=== PATIENT | female | born 1980 | race Hispanic/Latino ===

== ENCOUNTER 2019-05-23 21:06 | Emergency (ER) | payer MEDICARE, MEDICAID, SELFPAY ==
[2019-05-23 21:11] VITALS: BP 125/49; PULSE 137; RESP 24; TEMP 36.6; O2SAT 100
--- NOTE | 2019-05-23 21:12 | ED.GENADULT ---
HPI - General Adult General Chief complaint: Unspecified Stated complaint: took 4 pots mints, feeling weird Time Seen by Provider: 05/23/19 21:10 Source: family Mode of arrival: ambulatory History of Present Illness HPI narrative: A 39 y/o female presents to the ED, with c/o accidental overdose on marijuana. Spouse at bedside states pt told him she used recreational marijuana in the form of mints x 5 , but is unsure of the dosage. Spouse notes that pt has a hx of Lupus, Endometriosis, and arthritis that causes her to have chronic pain, so she was trying recreational marijuana for pain relief. Spouse reports that pt used marijuana in the form of a pill a few days ago and it made her very paranoid. He states when he returned home from dinner tonight he noticed the pt's heart rate was 150 bpm on her smart watch and she was paranoid and slow to respond. Pt's spouse states he gave the pt Aspirin x 1 prior to arrival. He denies pt having any recent illness. A complete HPI is limited d/t pt's clinical condition. complaint: accidental overdose Onset (ago): hour(s) Associated symptoms: other (paranoia, AMS) Treatments prior to arrival: aspirin Related Data Allergies Allergy/AdvReac Type Severity Reaction Status Date / Time Sulfa (Sulfonamide Allergy Mild hives, Verified 05/23/19 21:20 Antibiotics) itching Review of Systems Review of Systems: Narrative: A complete ROS is limited d/t pt's clinical condition. Constitutional: Constitutional: Reports other (AMS) Psychiatric: Psychiatric: Reports paranoia PMFSH Past Medical History Medical History (Updated 05/23/19 @ 23:52 by Nyla Mcnally MD) Arthritis Bowel obstruction Endometriosis Lupus Surgical History Surgical History (Updated 05/23/19 @ 22:01 by Hi eBTeravac) History of cholecystectomy History of hysterectomy History of tonsillectomy Social History Social History (Updated 05/23/19 @ 22:01 by Hi BeTeravac) Smoking status: Former smoker Exam Const: General: cooperative, no acute distress and alert Nutritional Appearance: well nourished Orientation/consciousness: patient oriented x3 Limitations: no limitations HENMT: Mouth: Yes lip normal and Yes dry mucous membranes Eyes: Pupils: Dilated pupils (reactive) bilaterally Resp: Effort & Inspection: normal respiratory effort Auscultation: clear to auscultation bilaterally Cardio: Rate: tachycardic Rhythm: regular rhythm Heart sounds: no murmurs GI: GI Palp: Yes Soft to palpation and No Tenderness to palpation present (GI) Auscultation: normal bowel sounds Skin: General skin exam: normal color Neuro: General: patient oriented x3 Cognition (Neuro): normal cognition Speech: normal speech Extrem: General: normal to inspection, full ROM and no clubbing, cyanosis or edema Psych: Mental Status: mental status grossly normal Affect: normal affect Attitude: cooperative Course Course Emergency Course: Patient heart rate normalized after Ativan and IV fluids. Patient calm and relaxed. Patient able to ambulate in ED with steady gait without difficulty. Patient drinking fluids without difficulty. Counseled on importance of avoiding marijuana unless under the guidance of a medical provider for medical marijuana given her significant symptomatology with attempts at self-medication. Vital Signs Vital signs: Vital Signs Temperature 97.8 F 05/23/19 21:11 Pulse Rate 137 H 05/23/19 21:11 Respiratory Rate 24 H 05/23/19 21:11 Blood Pressure 125/49 L 05/23/19 21:11 Pulse Oximetry 100 05/23/19 21:11 Temperature 97.8 F 05/23/19 21:11 Pulse Rate 97 05/23/19 22:36 Respiratory Rate 21 H 05/23/19 22:36 Blood Pressure 94/57 L 05/23/19 22:36 Pulse Oximetry 99 05/23/19 22:36 Medical Decision Making Vital Signs Vital Signs: Vital Signs Temperature 97.8 F 05/23/19 21:11 Pulse Rate 137 H 05/23/19 21:11 Respiratory Rate 24 H 05/23/19 21:11 Blood
[2019-05-23 21:17] VITALS: PULSE 131
--- NOTE | 2019-05-23 21:21 | ECG_ITS ---
Measurements Intervals [place] Rate: 128 P: 38 UT: 148 QRS: 29 QRSD: 76 T: 11 QT: 334 QTc: 488 Interpretive Statements SINUS TACHYCARDIA NONSPECIFIC T-WAVE ABNORMALITY- INFERIOR LEADS BASELINE ARTIFACT- I, II, III, AVR, AVL, AVF, V3-V4 ABNORMAL ECG Electronically Signed On 05-24-2019 7:15:09 SAP BASIS by Jose Hudson D.O.
[2019-05-23] MEDS: LORAZEPAM INJ 2 MG/ML VIAL 1 MG IV PUSH (21:33)
[2019-05-23] MEDS: LACTATED RINGERS 1,000 ML 999 ML IV CONT (21:36)
[2019-05-23 21:39] LABS: Basophils Absolute Auto 0.1 K/mm3 (0.0-0.1); Basophils Percent Auto 0.9 % (0.2-1.2); Eosinophils Absolute Auto 0.1 K/mm3 (0-0.3); Eosinophils Percent Auto 1.4 % (0-4.4); Hematocrit 37.2 % (37.0-47.0); Hemoglobin 12.2 g/dL (12.0-15.0); Immature Granulocyte Absolute 0.02 K/mm3 (0.00-0.031); Immature Granulocyte Percent A 0.4 % (0-0.5); Lymphocytes Absolute Auto 2.45 K/mm3 (0.9-3.2); Lymphocytes Percent Auto 42.9 % (18.3-44.2); Mean Corpuscular HGB Conc 32.8 g/dl (32-36); Mean Corpuscular Hemoglobin 29.9 pg (26-34); Mean Corpuscular Volume 91.2 fl (80-100); Mean Platelet Volume 10.4 fl (7.4-10.4); Monocytes Absolute Auto 0.2 K/mm3 (0.1-0.6); Monocytes Percent Auto 3.9 % (2.6-8.5); Neutrophils Absolute Auto 2.9 K/mm3 (1.3-6.7); Neutrophils Percent Auto 50.5 % (45.5-73.1); Platelet Count Result 265 k/mm3 (150-375); Red Blood Count 4.08 M/mm3 (4.2-5.4); Red Cell Distribution Width 12.7 % (11.5-14.5); White Blood Count 5.7 K/mm3 (4.5-10.0)
[2019-05-23 21:51] LABS: Alanine Aminotransferase 56 U/L (4-35); Albumin Level 3.9 g/dL (3.5-5.1); Alkaline Phosphatase 114 U/L (38-126); Aspartate Amino Transferase 32 U/L (14-36); Bilirubin,Total 0.2 mg/dL (0.2-1.3); Blood Urea Nitrogen 12 mg/dL (7-17); Calcium 8.5 mg/dL (8.4-10.2); Carbon Dioxide 25 mmol/L (22-30); Chloride 103 mmol/L (98-107); Estimated Glomerular Filt Rate > 60; Glucose 286 mg/dL (65-105); Potassium 3.8 mmol/L (3.4-5.0); Sodium 139 mmol/L (137-145)
[2019-05-23 21:52] LABS: Ethanol < 10 mg/dL (<10)
[2019-05-23 21:52] LABS: Add Urine Microscopic? YES; Appearance Urine Clear (Clear); Bacteria Urine Trace /hpf; Bilirubin Urine Negative (Negative); Blood Urine Negative (Negative); Color Urine Yellow (Yellow); Glucose Urine UA 3+ mg/dL (Negative); Ketones Urine Negative (Negative); Leukocyte Esterase Ur Negative LEU/UL (Negative); Mucus Urine Rare /lpf; Nitrate Urine Negative (Negative); Protein Urine Negative (Negative); Specific Grav Ur 1.021 (1.001-1.035); Squamous Epithelial Cell Urine Rare /hpf (Few); Urobilinogen Urine Negative mg/dL (<2.0); WBC Urine 0-3 /hpf
[2019-05-23 22:04] LABS: Amphetamine Screen Urine Negative (Negative); Barbiturate Screen Urine Negative (Negative); Benzodiazepines Screen Urine Negative (Negative); Cannabinoid Screen Urine Positive (Negative); Cocaine Screen Urine Negative (Negative); Methadone Screen Urine Negative (Negative); Opiate Screen Urine Negative (Negative); Phencyclidine Screen Urine Negative (Negative)
[2019-05-23 22:36] VITALS: BP 94/57; PULSE 97; RESP 21; O2SAT 99
[2019-05-24] VITALS: BP 96/59; PULSE 81; RESP 19; TEMP 36.4; O2SAT 99
== END 2019-05-24 00:03 | disposition home or self-care (01) ==
PROVIDERS: Emergency Provider Emergency Medicine; PCP Physician Assistant
DX: F12.921 Cannabis use, unspecified with intoxication delirium (principal); N80.9 Endometriosis, unspecified; M19.90 Unspecified osteoarthritis, unspecified site; Z87.891 Personal history of nicotine dependence; R00.0 Tachycardia, unspecified; R94.31 Abnormal electrocardiogram [ECG] [EKG]; T40.7X1A Poisoning by cannabis (derivatives), accidental (unintentional), initial encounter
CPT/HCPCS: 36415; 51701; 80053; 80307; 81001; 81025; 85025; 93005; 96361; 96374; 99284; J2060; J7120

== ENCOUNTER 2019-05-27 08:05 | Outpatient (CLI) | payer MEDICARE, MEDICAID, SELFPAY ==
[2019-05-27 08:43] LABS: Alanine Aminotransferase 40 U/L (4-35); Albumin Level 4.4 g/dL (3.5-5.1); Alkaline Phosphatase 112 U/L (38-126); Aspartate Amino Transferase 26 U/L (14-36); Bilirubin,Total 0.4 mg/dL (0.2-1.3); Blood Urea Nitrogen 8 mg/dL (7-17); Calcium 9.1 mg/dL (8.4-10.2); Carbon Dioxide 25 mmol/L (22-30); Chloride 102 mmol/L (98-107); Estimated Glomerular Filt Rate > 60; Glucose 104 mg/dL (65-105); Potassium 4.3 mmol/L (3.4-5.0); Sodium 141 mmol/L (137-145)
[2019-05-27 09:19] LABS: Basophils Absolute Auto 0.1 K/mm3 (0.0-0.1); Basophils Percent Auto 0.9 % (0.2-1.2); Eosinophils Absolute Auto 0.1 K/mm3 (0-0.3); Eosinophils Percent Auto 1.3 % (0-4.4); Hematocrit 40.8 % (37.0-47.0); Hemoglobin 13.1 g/dL (12.0-15.0); Immature Granulocyte Absolute 0.02 K/mm3 (0.00-0.031); Immature Granulocyte Percent A 0.3 % (0-0.5); Lymphocytes Absolute Auto 1.98 K/mm3 (0.9-3.2); Mean Corpuscular HGB Conc 32.1 g/dl (32-36); Mean Corpuscular Hemoglobin 29.6 pg (26-34); Mean Corpuscular Volume 92.1 fl (80-100); Mean Platelet Volume 10.6 fl (7.4-10.4); Monocytes Absolute Auto 0.3 K/mm3 (0.1-0.6); Monocytes Percent Auto 4.1 % (2.6-8.5); Neutrophils Absolute Auto 4.4 K/mm3 (1.3-6.7); Neutrophils Percent Auto 64.4 % (45.5-73.1); Platelet Count Result 290 k/mm3 (150-375); Red Blood Count 4.43 M/mm3 (4.2-5.4); Red Cell Distribution Width 12.8 % (11.5-14.5); White Blood Count 6.8 K/mm3 (4.5-10.0)
[2019-05-27 09:33] LABS: Vitamin B12 > 1000.0 pg/mL (239-931)
== END 2019-05-27 08:06 | disposition home or self-care (01) ==
PROVIDERS: PCP Physician Assistant; Visit Provider Physician Assistant
DX: R53.83 Other fatigue (principal); Z98.890 Other specified postprocedural states
CPT/HCPCS: 36415; 80053; 82607; 84443; 85025

== ENCOUNTER → 2020-05-04 16:07 | Outpatient (CLI) | payer MEDICARE, MEDICAID, SELFPAY ==
--- NOTE | ~2020-05-04 | XR_ITS ---
XR abdomen/kub 1V 05/04/2020 16:25 INDICATION: Flank pain and TECHNIQUE: KUB COMPARISON: 10/15/2014 FINDINGS: Bowel gas pattern is normal. There is no evidence of free air, mass, organomegaly, ascites or obstruction. No abnormal calculi are seen. The bones appear intact. IMPRESSION: 1: No acute abdominal abnormality identified. Reviewed, dictated and finalized at location A. NIC MANAGER
== END ==
PROVIDERS: PCP Physician Assistant; Visit Provider Physician Assistant
DX: R10.9 Unspecified abdominal pain (principal)
CPT/HCPCS: 74018

== ENCOUNTER 2020-05-20 10:27 | Emergency (ER) | payer MEDICARE, MEDICAID, SELFPAY ==
[2020-05-20 10:58] VITALS: BP 110/75; PULSE 97; RESP 20; TEMP 36.8; O2SAT 99
--- NOTE | 2020-05-20 11:18 | ED.FEMALEGU ---
HPI - Female Genitourinary General Chief complaint: Urogenital-Female Stated complaint: UTI/teeth pain/cold symptoms Time Seen by Provider: 05/20/20 11:09 Source: patient and RN notes reviewed Mode of arrival: ambulatory Limitations: no limitations History of Present Illness HPI Narrative: Patient presents today complaining of a 4-day history of dysuria, frequency, and possible urinary retention. Denies hematuria. History of interstitial cystitis for which she is in treatment for by her OB at [facility] and takes Elimiron. She is unsure if her current symptoms are UTI or an exacerbation of her interstitial cystitis. She is also complaining of pain to several of her teeth. States she knows she has several cavities and is on the waiting list at the dental school, but has been unable to find a dentist otherwise. States she has been eating soft foods for the last couple of months as it is painful to chew. Denies fever, difficulty swallowing, shortness of breath. Rates her tooth pain 5/10 and has been taking Tylenol. MD elicited complaint: dysuria Related Data Home Medications Medication Instructions Recorded Confirmed albuterol sulfate 90 mcg INHALATION PRN PRN 05/20/20 05/20/20 clonazepam 0.5 mg PO DAILY 05/20/20 05/20/20 duloxetine 60 mg PO DAILY 05/20/20 05/20/20 gabapentin 100 mg PO DAILY 05/20/20 05/20/20 lamotrigine 100 mg PO DAILY 05/20/20 05/20/20 pentosan polysulfate sodium 100 mg PO DAILY 05/20/20 05/20/20 [Elmiron] trazodone 50 mg PO HS 05/20/20 05/20/20 Allergies Allergy/AdvReac Type Severity Reaction Status Date / Time Sulfa (Sulfonamide Allergy Mild hives, Verified 05/20/20 10:44 Antibiotics) itching NSAIDS (Non-Steroidal AdvReac Intermediate Gastrointestinal Verified 05/20/20 10:44 Anti-Inflamma Upset Review of Systems Review of Systems: Narrative: CONSTITUTIONAL: Denies body aches, fever, chills, or sweats. EYES: Denies visual changes, redness, or discharge. ENT: Denies rhinorrhea, congestion, sore throat, or otalgia.+ tooth pain CARDIOVASCULAR: Denies chest pain, palpitations, or edema. RESPIRATORY: Denies cough or dyspnea. GASTROINTESTINAL: Denies abdominal pain, nausea, vomiting, or diarrhea. GENITOURINARY: +dysuria, frequency SKIN: Denies rash, itching, or wounds. MUSCULOSKELETAL: Denies back pain, joint pain, or myalgia. NEUROLOGIC: Denies headache, numbness, tingling, or weakness. PSYCH: Denies depression or anxiety. [facility] Past Medical History Medical History (Updated 05/20/20 @ 12:46 by Brissa Belle, [facility], ) Arthritis Bowel obstruction Endometriosis Interstitial cystitis Lupus Surgical History Surgical History (Updated 05/23/19 @ 22:01 by Hi Be Doist) History of cholecystectomy History of hysterectomy History of tonsillectomy Social History Social History (Updated 05/23/19 @ 22:01 by Hi Be Doist) Smoking status: Former smoker Gender identity (if verbalized by the patient): Female Comments At time of signature, I have reviewed and agree with nursing past medical, surgical, social and family history unless otherwise noted. Please see nursing chart for further information. There is no relevant family history pertinent to the presenting complaint Exam Narrative: Exam Narrative: GENERAL: Well-appearing, well-nourished, and in no acute distress. HEAD: Normocephalic, atraumatic. EYES: EOMI. No redness or drainage. Conjunctivae normal. ENT: Mucous membranes pink and moist. Nares clear. No rhinorrhea. No obvious periapical abscesses or swollen gums. No obvious dental caries. TMs normal bilaterally. Throat normal. Uvula midline. NECK: Normal AROM. Supple. No lymphadenopathy. CHEST: No respiratory distress. Clear to auscultation. HEART: Regular rate and rhythm. No murmur appreciated. Normal peripheral pulses. ABDOMEN: Soft, nondistended, normal active bowel sounds. +Suprapubic area is slightly tender to palpation. MUSCULOSKELETAL: N
== END 2020-05-20 11:25 | disposition home or self-care (01) ==
PROVIDERS: Emergency Provider Nurse Practitioner; PCP Physician Assistant
DX: N30.01 Acute cystitis with hematuria (principal); K08.89 Other specified disorders of teeth and supporting structures; Z87.891 Personal history of nicotine dependence; M19.90 Unspecified osteoarthritis, unspecified site; N80.9 Endometriosis, unspecified; M32.9 Systemic lupus erythematosus, unspecified
CPT/HCPCS: 81003; 87086; 87088; 99213; G0463

== ENCOUNTER → 2020-06-17 13:53 | Outpatient (CLI) | payer MEDICARE, MEDICAID, SELFPAY ==
--- NOTE | ~2020-06-17 | MR_ITS ---
EXAMINATION: MR cervical spine wo con EXAM DATE: 06/17/2020 14:32 INDICATION: Left-sided neck pain, left shoulder pain. Cervicalgia. TECHNIQUE: Multi-sequential, multiplanar MR images of the cervical spine were obtained without contra st. Axial T2, axial T2 MERGE sequence. Sagittal T1, T2, T2 fat saturation images also obtained. Th ere is no prior study for comparison. FINDINGS: Moderate-sized dilated right-sided nerve root sleeve at T2-3, small dilated nerve root sle eves at some other levels bilaterally. This is not a clinically significant finding. The spinal cord signal intensity and intrinsic morphology is normal. Cervicomedullary junction is normal in appearanc e. There are no suspicious marrow signal abnormalities. Mild to moderate loss of the C5-6 disc height . The vertebral body and disc heights are otherwise well maintained. The vertebral bodies are aligned in the AP dimension. Paraspinal soft tissue is unremarkable. Level by level evaluation: C2-C3: Disc does not extend beyond the endplate margin. Uncovertebral joint arthropathy: None. Facet joint arthropathy: Mild bilateral. Neural foraminal stenosis: No stenosis. Central canal stenosis: No stenosis. C3-C4: Disc does not extend beyond the endplate margin. Uncovertebral joint arthropathy: None. Facet joint arthropathy: Mild bilateral. Neural foraminal stenosis: No stenosis. Central canal stenosis: No stenosis. C4-C5: Disc does not extend beyond the endplate margin. Uncovertebral joint arthropathy: None. Facet joint arthropathy: Mild bilateral. Neural foraminal stenosis: No stenosis. Central canal stenosis: No stenosis. C5-C6: There is a mild diffuse disc bulge. Uncovertebral joint arthropathy: Mild to moderate left, mild right. Facet joint arthropathy: Mild bilateral. Neural foraminal stenosis: Mild to moderate left, mild right. Central canal stenosis: Mild. C6-C7: There is a minimal diffuse disc bulge. Uncovertebral joint arthropathy: Mild left. Facet joint arthropathy: Minimal bilateral. Neural foraminal stenosis: No stenosis. Central canal stenosis: No stenosis. C7-T1: Disc does not extend beyond the endplate margin. Uncovertebral joint arthropathy: None. Facet joint arthropathy: Mild bilateral. Neural foraminal stenosis: No stenosis. Central canal stenosis: No stenosis. IMPRESSION: 1. C5-6 mild to moderate left neural foraminal stenosis, the most narrowed level. 2. Less spondylosis other levels. Reviewed, dictated and finalized at location A. IMPRESSION: 1. C5-6 mild to moderate left neural foraminal stenosis, the most narrowed lev el. 2. Less spondylosis other levels.
== END ==
DX: M54.2 Cervicalgia (principal)
CPT/HCPCS: 72141

== ENCOUNTER 2020-09-08 08:49 | Outpatient (CLI) | payer MEDICARE, MEDICAID, SELFPAY ==
[2020-09-08 09:34] LABS: Basophils Absolute Auto 0.1 K/mm3 (0.0-0.1); Basophils Percent Auto 0.9 % (0.2-1.2); Eosinophils Percent Auto 0.2 % (0-4.4); Hematocrit 42.5 % (37.0-47.0); Hemoglobin 13.6 g/dL (12.0-15.0); Immature Granulocyte Percent A 1.2 % (0-0.5); Lymphocytes Absolute Auto 2.47 K/mm3 (0.9-3.2); Lymphocytes Percent Auto 30.5 % (18.3-44.2); Mean Corpuscular Hemoglobin 29.9 pg (26-34); Mean Corpuscular Volume 93.4 fl (80-100); Mean Platelet Volume 9.6 fl (7.4-10.4); Monocytes Absolute Auto 0.5 K/mm3 (0.1-0.6); Monocytes Percent Auto 6.5 % (2.6-8.5); Neutrophils Absolute Auto 4.9 K/mm3 (1.3-6.7); Neutrophils Percent Auto 60.7 % (45.5-73.1); Platelet Count Result 291 k/mm3 (150-375); Red Blood Count 4.55 M/mm3 (4.2-5.4); Red Cell Distribution Width 12.7 % (11.5-14.5); White Blood Count 8.1 K/mm3 (4.5-10.0)
[2020-09-08 09:51] LABS: Creatinine Urine 167.1 mg/dL
[2020-09-08 09:59] LABS: Alanine Aminotransferase 27 U/L (4-35); Albumin Level 4.3 g/dL (3.5-5.1); Alkaline Phosphatase 90 U/L (38-126); Anion Gap 10 mmol/L (8-16); Aspartate Amino Transferase 28 U/L (14-36); Bilirubin,Total 0.3 mg/dL (0.2-1.3); Blood Urea Nitrogen 8 mg/dL (7-17); Calcium 9.8 mg/dL (8.4-10.2); Carbon Dioxide 28 mmol/L (22-30); Chloride 104 mmol/L (98-107); Estimated Glomerular Filt Rate > 60; Glucose 100 mg/dL (65-105); Magnesium 2.2 mg/dL (1.6-2.3); Potassium 4.5 mmol/L (3.4-5.0); Sodium 142 mmol/L (137-145)
[2020-09-08 10:22] LABS: MALB Creatinine Ratio < 3.6 mg/g (0-30); Microalbumin Urine Random < 6.0 mg/L (0-16.7)
[2020-09-08 10:29] LABS: Thyroid Stimulating Hormone 0.037 uIU/mL (0.465-4.680)
[2020-09-08 10:32] LABS: Free T4 Free Thyroxine 0.89 ng/mL (0.78-2.19); Vitamin D 25 Hydroxy 70.9 ng/mL
[2020-09-08 10:48] LABS: Vitamin B12 > 1000.0 pg/mL (239-931)
== END 2020-09-08 08:50 | disposition home or self-care (01) ==
PROVIDERS: PCP Physician Assistant; Visit Provider Physician Assistant
DX: R53.83 Other fatigue (principal); E55.9 Vitamin D deficiency, unspecified; K13.0 Diseases of lips
CPT/HCPCS: 36415; 80053; 82043; 82306; 82607; 83735; 84439; 84443; 85025

== ENCOUNTER → 2020-09-15 11:14 | Outpatient (CLI) | payer MEDICARE, MEDICAID, SELFPAY ==
--- NOTE | ~2020-09-15 | US_ITS ---
EXAMINATION: US soft tissue pelvic EXAM DATE: 09/15/2020 11:54 INDICATION: Left inguinal pain, LLQ pain. Prior inguinal surgery. TECHNIQUE: Multiple grayscale and Doppler images of the pelvic left inguinal soft tissue were obtaine d (by a technologist who performed the scan) and subsequently reviewed. There is no prior study for comparison. FINDINGS: Small left inguinal lymph node, reactive. Scanning in the area of concern demonstrated focal region s mall region along the inguinal canal wall, could be a small fat-containing hernia. If it is, the wall defect measures about 5 mm in size, herniated portion approximately 1 x 2 cm. Alternatively, potenti ally could be scar. IMPRESSION: Left inguinal focal region which could be small fat-containing hernia or less likely scar . Reviewed, dictated and finalized at location B. IMPRESSION: Left inguinal focal region which could be small fat-containing william ia or less likely scar.
== END ==
PROVIDERS: PCP Physician Assistant; Visit Provider Physician Assistant
DX: R10.12 Left upper quadrant pain (principal); R10.32 Left lower quadrant pain
CPT/HCPCS: 76857

== ENCOUNTER 2020-09-15 12:10 | Outpatient (CLI) | payer MEDICARE, MEDICAID, SELFPAY ==
[2020-09-15 12:41] LABS: Hemoglobin A1C 5.1 % (<5.7)
[2020-09-15 12:47] LABS: Cholesterol 184 mg/dL (0-200); HDL Direct 63 mg/dL; Triglycerides 99 mg/dL (<150)
[2020-09-15 12:58] LABS: LDL Cholesterol Direct 91 mg/dL
[2020-09-15 13:44] LABS: Iron 160 ug/dL (37-170)
[2020-09-15 13:54] LABS: Percent Iron Saturation 43 % (20-50)
== END 2020-09-15 12:11 | disposition home or self-care (01) ==
PROVIDERS: PCP Physician Assistant; Visit Provider Physician Assistant
DX: R53.83 Other fatigue (principal); K13.0 Diseases of lips; E83.10 Disorder of iron metabolism, unspecified; Z51.81 Encounter for therapeutic drug level monitoring; Z79.899 Other long term (current) drug therapy
CPT/HCPCS: 36415; 80061; 83036; 83540; 83550

== ENCOUNTER 2020-10-18 14:32 | Emergency (ER) | payer MEDICARE, MEDICAID, SELFPAY ==
[2020-10-18 14:44] VITALS: BP 103/74; PULSE 92; RESP 18; TEMP 36.6; O2SAT 100
--- NOTE | 2020-10-18 15:26 | ED.DENTAL ---
HPI - Dental/Oral General Chief complaint: Dental/Oral Stated complaint: Mouth pain and swelling, headache Source: patient and RN notes reviewed Mode of arrival: ambulatory History of Present Illness HPI Narrative: This is a 40-year-old female that presented to urgent care with complaints of mouth pain. According to patient 3 weeks ago she had a tooth extraction. According to patient before her extraction she was given penicillin after which she was given Augmentin. Patient notes that she still continues to have pain to her right side of her mouth that radiates down her jawbone. She also noted that she felt something sharp in her mouth which she believes is portion of her teeth. She did contact her dentist, she has not gotten a reply back ,she also contacted her primary care physician who instructed her to come to urgent care. Patient notes that she has completed her antibiotic treatment and gargle with salt water as her dentist have instructed. She still continues to have mouth pain. The patient denies SOB, CP, palpitation, extremity numbness, lightheadedness, dizziness, constipation, diarrhea, chills, or fever. I will extend her antibiotic treatment in give her pain medication until she can get in with her dentist MD Complaint: tooth pain Teeth map: 1. Tooth extraction Related Data Home Medications Medication Instructions Recorded Confirmed albuterol sulfate 90 mcg INHALATION PRN PRN 05/20/20 10/18/20 clonazepam 0.5 mg PO DAILY 05/20/20 10/18/20 duloxetine 60 mg PO DAILY 05/20/20 10/18/20 gabapentin 100 mg PO DAILY 05/20/20 10/18/20 lamotrigine 100 mg PO DAILY 05/20/20 10/18/20 pentosan polysulfate sodium 100 mg PO DAILY 05/20/20 10/18/20 [Elmiron] Allergies Allergy/AdvReac Type Severity Reaction Status Date / Time Sulfa (Sulfonamide Allergy Mild hives, Verified 10/18/20 15:02 Antibiotics) itching NSAIDS (Non-Steroidal AdvReac Intermediate Gastrointestinal Verified 10/18/20 15:02 Anti-Inflamma Upset adhesive AdvReac Mild Rash Verified 10/18/20 15:02 Review of Systems Review of Systems: Narrative: A 14 organ system Review of Systems was performed and pertinent positives included in the HPI, otherwise remaining ROS is negative. All systems reviewed & are unremarkable except as noted in HPI and below PMFSH Past Medical History Medical History (Updated 10/18/20 @ 15:21 by MAGGIE Enriquez) Arthritis Bowel obstruction Endometriosis Interstitial cystitis Lupus Surgical History Surgical History (Updated 05/23/19 @ 22:01 by Hi [employer]) History of cholecystectomy History of hysterectomy History of tonsillectomy Social History Social History (Updated 05/23/19 @ 22:01 by Hi Be [employer]) Smoking status: Former smoker Gender identity (if verbalized by the patient): Female Exam Narrative: Exam Narrative: GENERAL: This is a well-nourished, well-developed patient, in no apparent distress. HEAD: normocephalic, atraumatic. EYES: PERRL. Sclera clear/white. Vision is grossly intact. EARS: External ears normal, auditory canals clear and without drainage, TMs normal without perforation. Hearing grossly intact. NOSE: External nose normal with no obvious nasal discharge, nares without redness, no rhinorrhea. THROAT: Mucous membranes moist, posterior pharynx clear. Tooth extraction refer to diagram slight edema noted NECK: Neck supple, non-tender without lymphadenopathy, masses or thyromegaly. CARDIOVASCULAR: Regular rate and rhythm without murmurs, gallops, or rubs. RESPIRATORY: Clear to auscultation. Breath sounds equal bilaterally. No wheezes, rales, or rhonchi. GASTROINTESTINAL: Abdomen soft, non-tender, nondistended. Bowel sounds are active. No hepato-splenomegaly, or palpable masses. No guarding. SKIN: warm, intact with no suspicious lesions or rash, good texture and turgor. NEURO: awake, alert, and oriented to person, place and time. There were no obvious focal neurologic
== END 2020-10-18 15:43 | disposition home or self-care (01) ==
PROVIDERS: Emergency Provider Nurse Practitioner; PCP Physician Assistant
DX: K04.7 Periapical abscess without sinus (principal); M19.90 Unspecified osteoarthritis, unspecified site; N80.9 Endometriosis, unspecified; Z87.891 Personal history of nicotine dependence
CPT/HCPCS: 99213; G0463

== ENCOUNTER → 2020-10-28 10:19 | Outpatient (CLI) | payer MEDICARE, MEDICAID, SELFPAY ==
--- NOTE | ~2020-10-28 | CT_ITS ---
EXAMINATION: CT abdomen pelvis w con INDICATION: Abdominal pain of multiple sites TECHNIQUE: Computed tomographic images of the abdomen and pelvis were obtained after the administrati on of 100 cc of Omnipaque 350 intravenous contrast. The dose-length product (DLP) was 953.01 mGy-cm. Automated exposure control and iterative reconstruction technique were employed. COMPARISON: 11/21/2018 FINDINGS: The lung bases are clear. The heart size is normal. There are changes of gastric bypass. Th e gallbladder is surgically absent. The liver, spleen, pancreas, and adrenal glands are normal. The k idneys are unremarkable. No pathologically enlarged abdominal or pelvic lymph nodes are identified. T here is no free intraperitoneal gas or evidence of bowel obstruction. There are changes of interval h ysterectomy. A 3.3 cm cystic area of the right pelvis likely relates to the right ovary. IMPRESSION: 1. No CT correlate for the patient's symptoms. Reviewed, dictated and finalized at location A.
== END ==
PROVIDERS: PCP Physician Assistant; Visit Provider Physician Assistant
DX: R10.9 Unspecified abdominal pain (principal)
CPT/HCPCS: 74177; Q9967

== ENCOUNTER 2020-12-16 10:05 | Emergency (ER) | payer MEDICARE, MEDICAID, SELFPAY ==
--- NOTE | ~2020-12-16 | XR_ITS ---
EXAMINATION: XR chest 2V DATE: 12/16/2020 10:41 INDICATION: Possible foreign body or aspiration TECHNIQUE: PA and lateral views of the chest are obtained. COMPARISON: 06/20/2018 FINDINGS: The lungs are free of acute opacities. No aspirated radiopaque foreign body is identified. There is no pleural effusion or pneumothorax. The cardiomediastinal silhouette is normal. There is mi ld thoracic spondylosis. Cholecystectomy clips are noted in the right upper quadrant. There there are surgical changes suggestive of gastric bypass. IMPRESSION: 1. No acute cardiopulmonary abnormality or evidence of aspirated foreign body. Reviewed, dictated and finalized at location A.
[2020-12-16 10:12] VITALS: BP 114/73; PULSE 98; RESP 16; TEMP 36.3; O2SAT 99
--- NOTE | 2020-12-16 10:13 | ED.GENADULT ---
HPI - General Adult General Chief complaint: Skin/Abscess/Foreign Body Stated complaint: fb in throat Time Seen by Provider: 12/16/20 10:15 Source: patient and RN notes reviewed Mode of arrival: ambulatory Limitations: no limitations History of Present Illness HPI narrative: 40-year-old female presents with concern for possible inhaled foreign body. Reports the day before yesterday she was eating licorice, laughed and felt herself inhale a small piece of licorice. Reports she can feel it when she swallows, reports she has tried to eat and drink things to try to flush it down, without success. She denies any stridor, wheezing, shortness of breath, coughing, fever. She denies any stridor at the time of the incident. Reports she has been trying to cough forcefully to expel the item without success. complaint: Inhaled foreign body Related Data Home Medications Medication Instructions Recorded Confirmed duloxetine 60 mg PO DAILY 05/20/20 12/16/20 alprazolam 0.5 mg PO DAILY PRN 12/16/20 12/16/20 lamotrigine 200 mg PO DAILY 12/16/20 12/16/20 medroxyprogesterone 150 mg IM [id number] 12/16/20 12/16/20 Allergies Allergy/AdvReac Type Severity Reaction Status Date / Time Sulfa (Sulfonamide Allergy Mild hives, Verified 12/16/20 10:20 Antibiotics) itching NSAIDS (Non-Steroidal AdvReac Intermediate Gastrointestinal Verified 12/16/20 10:20 Anti-Inflamma Upset adhesive AdvReac Mild Rash Verified 12/16/20 10:20 Review of Systems Review of Systems: CONSTITUTIONAL: Denies malaise, chills, sweats, or fever. ENT: Denies sore throat, difficulty swallowing. CARDIOVASCULAR: Denies chest pain, palpitations, or edema. RESPIRATORY: Denies cough, wheezing, or dyspnea. Reports feeling of foreign body in the airway GASTROINTESTINAL: Denies nausea, vomiting All systems reviewed & are unremarkable except as noted in HPI and below PMFSH Past Medical History Medical History (Updated 12/16/20 @ 11:00 by Jessi Ochoa NP) Arthritis Bowel obstruction Endometriosis Interstitial cystitis Lupus Surgical History Surgical History (Updated 05/23/19 @ 22:01 by Hi Be, [facility]) History of cholecystectomy History of hysterectomy History of tonsillectomy Social History Social History (Updated 05/23/19 @ 22:01 by Hi Be, [facility]) Smoking status: Former smoker Gender identity (if verbalized by the patient): Female Comments At time of signature, agree with nursing past medical, surgical, social and family history. There is no relevant family history pertinent to the presenting complaint Exam Narrative: GENERAL: Well-appearing, well-nourished, and in no acute distress. HEAD: Normocephalic, atraumatic. EYES: PERRLA, sclera clear, and EOMI. No nystagmus. ENT: Nares clear. Mucous membranes moist. Oropharynx without edema, erythema or lesions, no foreign body visible. Tonsils not enlarged and without exudate. NECK: Supple. No lymphadenopathy. No carotid bruits, no stridor noted upon auscultation of the right or left neck. Carotids were easily palpable bilaterally. CHEST: No respiratory distress. Clear to auscultation. No bony deformities, no asymmetry. Speaks in full sentences. HEART: Regular rate and rhythm SKIN: Warm, dry, no visible rash. NEURO: Alert and oriented x3. PSYCH: Normal mood and affect Course Course Emergency Course: Consulted with Dr. Mcguire at [facility] emergency room. He recommends patient follow-up with primary care, seek care in the emergency room if symptoms change or worsen. Reached out to otolaryngology who can see the patient on Saturday. Patient is aware of, understands and agrees to treatment plan. Anticipatory guidance given. Patient agrees to follow-up as directed and is aware of reasons to seek care at the emergency department. Portions of this record may have been created with voice recognition software Vital Signs Vital signs: Reviewed. Medical Decision Making [facility] Narrativ
== END 2020-12-16 11:14 | disposition home or self-care (01) ==
PROVIDERS: Emergency Provider Nurse Practitioner; PCP Physician Assistant
DX: T17.228A Food in pharynx causing other injury, initial encounter (principal); Z87.891 Personal history of nicotine dependence
CPT/HCPCS: 71046; 99213; G0463

== ENCOUNTER 2021-01-07 11:24 | Emergency (ER) | payer MEDICARE, MEDICAID, SELFPAY ==
--- NOTE | 2021-01-07 12:33 | ED.ANIMALBIT ---
HPI - Animal Bite General Chief Complaint: Animal Bite Stated Complaint: Dog bit Rt upper arm Source: patient and RN notes reviewed Limitations: no limitations History of Present Illness HPI narrative: The patient, on several mood medications, presents with dog bite. Patient states she sustained a provoked dog bite by her family dog a day ago. She complains of mild pain and bruising to her right triceps area. No bleeding, redness, discharge, streaking, significant maceration; symptoms are mild, worse with activity. Tetanus status is uncertain but felt to be about 5 years. Related Data Home Medications Medication Instructions Recorded Confirmed duloxetine 60 mg PO DAILY 05/20/20 12/16/20 alprazolam 0.5 mg PO DAILY PRN 12/16/20 12/16/20 lamotrigine 200 mg PO DAILY 12/16/20 12/16/20 medroxyprogesterone 150 mg IM [id number] 12/16/20 12/16/20 Allergies Allergy/AdvReac Type Severity Reaction Status Date / Time Sulfa (Sulfonamide Allergy Mild hives, Verified 12/16/20 10:20 Antibiotics) itching NSAIDS (Non-Steroidal AdvReac Intermediate Gastrointestinal Verified 12/16/20 10:20 Anti-Inflamma Upset adhesive AdvReac Mild Rash Verified 12/16/20 10:20 Review of Systems Review of Systems: General/Constitutional: No weight loss,fever Eyes: N0: Redness,discharge Ears/Nose/Throat: No: Epistaxis,ear discharge Respiratory: Denies: Hemoptysis Gastrointestinal: No Vomiting, Bleeding-rectal Skin: No Lumps, eruption Neurologic: No Focal Weakness,Sz Hematologic: Denies: Petechiae/Purpura Psychiatric: No: Suicida ideationl All Other Systems: Reviewed and Negative [facility] Past Medical History Medical History (Updated 01/07/21 @ 12:35 by Gilberto Combs MD) Arthritis Bowel obstruction Endometriosis Interstitial cystitis Lupus Surgical History Surgical History (Updated 05/23/19 @ 22:01 by TERRENCE Arroyo) History of cholecystectomy History of hysterectomy History of tonsillectomy Social History Social History (Updated 05/23/19 @ 22:01 by TERRENCE Arroyo) Smoking status: Former smoker Gender identity (if verbalized by the patient): Female Comments At time of signature, agree with nursing past medical, surgical, social and family history. There is no relevant family history pertinent to the presenting complaint Exam Narrative: General Appearance: Well appearing, Conjunctiva clear Ears: External ear normal, Auditory canal normal Nose: Normal nose, Nares clear Mouth/Throat: Normal appearing, Normal lips,: Supple Respiratory: Airway patent, No respiratory distress MS-arm: Normal strength (mostly intact, limited flexion/extension by pain), Tenderness (present, with mild decreased ROM), mild swelling , Skin: Warm, Dry, healing bruise of tricep Neurological: A&O x3, Speech clear, CN II-XII intact Psychiatric: Normal mood, Normal affect Course Vital Signs Vital signs: Vital Signs Temperature 98.1 F 01/07/21 12:40 Pulse Rate 86 01/07/21 12:40 Respiratory Rate 16 01/07/21 12:40 Blood Pressure 112/75 01/07/21 12:40 Pulse Oximetry 99 01/07/21 12:40 Temperature 98.1 F 01/07/21 12:40 Pulse Rate 86 01/07/21 12:40 Respiratory Rate 16 01/07/21 12:40 Blood Pressure 112/75 01/07/21 12:40 Pulse Oximetry 99 01/07/21 12:40 Discharge Plan Discharge Clinical Impression: Dog bite Qualifiers: Encounter type: initial encounter Qualified Code(s): W54.0XXA - Bitten by dog, initial encounter Patient Disposition: Home, Self-Care Condition: Stable Instructions: Antibiotic Form, Animal Bite (ED) Prescriptions: New mupirocin 2 % ointment 1 applic TOPICAL TID Qty: 30 RF: 0 amoxicillin-pot clavulanate [Augmentin] 500-125 mg tablet 1 tablet PO Q12H Qty: 7 RF: 0 No Action duloxetine 60 mg capsule,delayed release(DR/EC) 60 mg PO DAILY RF: 0 lamotrigine 200 mg tablet 200 mg PO DAILY RF: 0 alprazolam 0.5 mg tablet 0.5
[2021-01-07 12:40] VITALS: BP 112/75; PULSE 86; RESP 16; TEMP 36.7; O2SAT 99
[2021-01-07 12:50] VITALS: BP 112/75; PULSE 81; RESP 16; TEMP 36.6; O2SAT 99
== END 2021-01-07 12:47 | disposition home or self-care (01) ==
PROVIDERS: Emergency Provider Emergency Medicine; PCP Physician Assistant
DX: S41.151A Open bite of right upper arm, initial encounter (principal); W54.0XXA Bitten by dog, initial encounter; Z87.891 Personal history of nicotine dependence; M19.90 Unspecified osteoarthritis, unspecified site; N80.9 Endometriosis, unspecified; M32.9 Systemic lupus erythematosus, unspecified
CPT/HCPCS: 99213; G0463

== ENCOUNTER → 2021-05-16 11:18 | Outpatient (CLI) | payer MEDICARE, MEDICAID, SELFPAY ==
--- NOTE | ~2021-05-16 | CT_ITS ---
EXAMINATION: CT pelvis wo/w con INDICATION: Left lower quadrant pain TECHNIQUE: Computed tomographic images of the pelvis were obtained prior to then after the administra tion of 100 cc of Omnipaque 350 intravenous contrast. The dose-length product (DLP) was 1126.08 mGy-c m. Automated exposure control and iterative reconstruction technique were employed. COMPARISON: 10/28/2020 FINDINGS: There are changes of hysterectomy and left oophorectomy. The previously described cystic le mukund of the right pelvis has decreased in size. The visualized portions of the right kidney are unrem arkable. There are no pathologically enlarged pelvic lymph nodes. There is no free intraperitoneal ga s or evidence of bowel obstruction. No abnormal enhancement is present after contrast administration. IMPRESSION: 1. No CT correlate for the patient's symptoms. Reviewed, dictated and finalized at location A. LER HELPER
== END ==
DX: R10.2 Pelvic and perineal pain (principal)
CPT/HCPCS: 72194; Q9967

== ENCOUNTER 2021-06-28 12:21 | Outpatient (CLI) | payer MEDICARE, MEDICAID, SELFPAY ==
--- NOTE | ~2021-06-28 | CT_ITS ---
EXAMINATION: CT abdomen pelvis w con EXAM DATE: 06/28/2021 13:05 INDICATION: Upper abdominal pain, gastric bypass 2018. Nausea. TECHNIQUE: Spiral CT of the abdomen and pelvis was performed following intravenous injection of 100 m L Omnipaque 350. Axial, coronal and sagittal images of the abdomen and pelvis were reviewed. The do se-length product (DLP) for this examination was 940.95 mGy-cm. The exposure was tailored according to patient size (auto mA exposure control), and iterative reconstruction (ASIR) was used as additiona l dose reduction technique. Comparison is made to prior examination from 05/16/2021. FINDINGS: The liver, spleen, adrenal glands and pancreas are unremarkable. There are cholecystectomy clips. Portal and splenic veins are patent. Kidneys enhance symmetrically. There is no hydronephr osis. The uterus is not identified and has likely been surgically resected. The bladder is unremar kable. There is no retroperitoneal or pelvic lymphadenopathy. There are no findings to suggest appendicitis. There are surgical changes from intact gastric bypass surgery. There is expected amount of colonic stool. No free intraperitoneal gas. The heart is n ormal in size. There are no pericardial or pleural effusions. The lung bases are unremarkable. The re are no osteoblastic or osteolytic lesions identified. IMPRESSION: Surgical changes from gastric bypass, hysterectomy and cholecystectomy. No acute findings . Reviewed, dictated and finalized at location B. IMPRESSION: Surgical changes from gastric bypass, hysterectomy and cholecystect radha. No acute findings.
== END 2021-06-28 12:22 | disposition home or self-care (01) ==
LOC: ANHIMG 12:29
PROVIDERS: PCP Physician Assistant; Visit Provider Physician Assistant
DX: R10.9 Unspecified abdominal pain (principal)
CPT/HCPCS: 74177; Q9967

== ENCOUNTER 2021-07-04 14:26 | Outpatient (CLI) | payer MEDICARE, MEDICAID, SELFPAY ==
[2021-07-04 15:18] LABS: Alanine Aminotransferase 18 U/L (4-35); Albumin Level 4.5 g/dL (3.5-5.1); Alkaline Phosphatase 91 U/L (38-126); Amylase 102 U/L (30-110); Anion Gap 6 mmol/L (8-16); Aspartate Amino Transferase 22 U/L (14-36); Basophils Absolute Auto 0.1 K/mm3 (0.0-0.1); Basophils Percent Auto 0.7 % (0.2-1.2); Bilirubin,Total 0.6 mg/dL (0.2-1.3); Blood Urea Nitrogen 7 mg/dL (7-17); Calcium 9.2 mg/dL (8.4-10.2); Carbon Dioxide 28 mmol/L (22-30); Chloride 103 mmol/L (98-107); Cholesterol 135 mg/dL (0-200); Eosinophils Absolute Auto 0.1 K/mm3 (0-0.3); Eosinophils Percent Auto 0.7 % (0-4.4); Estimated Glomerular Filt Rate > 60; Glucose 84 mg/dL (65-110); HDL Direct 38 mg/dL; Hematocrit 39.9 % (37.0-47.0); Hemoglobin 13.3 g/dL (12.0-15.0); Immature Granulocyte Absolute 0.03 K/mm3 (0.00-0.031); Immature Granulocyte Percent A 0.4 % (0-0.5); Lipase 147 U/L (23-300); Lymphocytes Absolute Auto 2.62 K/mm3 (0.9-3.2); Lymphocytes Percent Auto 37.1 % (18.3-44.2); Mean Corpuscular HGB Conc 33.3 g/dl (32-36); Mean Corpuscular Hemoglobin 30.9 pg (26-34); Mean Corpuscular Volume 92.8 fl (80-100); Mean Platelet Volume 9.7 fl (7.4-10.4); Monocytes Absolute Auto 0.4 K/mm3 (0.1-0.6); Monocytes Percent Auto 5.2 % (2.6-8.5); Neutrophils Absolute Auto 3.9 K/mm3 (1.3-6.7); Neutrophils Percent Auto 55.9 % (45.5-73.1); Platelet Count Result 303 k/mm3 (150-375); Potassium 4.5 mmol/L (3.4-5.0); Red Cell Distribution Width 12.9 % (11.5-14.5); Sodium 137 mmol/L (137-145); Triglycerides 97 mg/dL (<150); White Blood Count 7.1 K/mm3 (4.5-10.0)
[2021-07-04 15:19] LABS: Hemoglobin A1C 4.5 % (<5.7)
[2021-07-04 15:29] LABS: LDL Cholesterol Direct 64 mg/dL
[2021-07-04 15:39] LABS: Iron 117 ug/dL (37-170)
[2021-07-04 15:49] LABS: Percent Iron Saturation 35 % (20-50)
== END 2021-07-04 14:27 | disposition home or self-care (01) ==
LOC: ANHLAB 14:34
PROVIDERS: PCP Physician Assistant; Visit Provider Physician Assistant
DX: R10.9 Unspecified abdominal pain (principal); E66.9 Obesity, unspecified; R53.83 Other fatigue; R73.9 Hyperglycemia, unspecified; Z98.84 Bariatric surgery status
CPT/HCPCS: 36415; 80053; 80061; 82150; 83036; 83540; 83550; 83690; 85025

== ENCOUNTER 2021-07-05 11:55 | Outpatient (CLI) | payer MEDICARE, MEDICAID, SELFPAY ==
[2021-07-05 13:19] LABS: Thyroid Stimulating Hormone 0.127 uIU/mL (0.465-4.680)
[2021-07-09 12:12] LABS: Triiodothyronine T3 Free 3.3 pg/mL (2.3-4.2)
== END 2021-07-05 11:56 | disposition home or self-care (01) ==
PROVIDERS: PCP Physician Assistant
DX: R10.9 Unspecified abdominal pain (principal); K59.00 Constipation, unspecified; R14.0 Abdominal distension (gaseous)
CPT/HCPCS: 36415; 84443; 84481

== ENCOUNTER 2022-02-24 10:01 | Emergency (ER) | payer MEDICARE, MEDICAID, SELFPAY ==
[2022-02-24 10:13] VITALS: BP 107/64; PULSE 81; RESP 18; TEMP 36.9; O2SAT 99
--- NOTE | 2022-02-24 10:22 | ED.GENADULT ---
HPI - General Adult General Chief complaint: Chest Pain Stated complaint: lt side pain Time Seen by Provider: 02/24/22 10:14 Source: patient Mode of arrival: ambulatory Limitations: no limitations History of Present Illness HPI narrative: Patient presents today complaining of right lateral chest wall pain. The pain began suddenly after she reached for the TV remote at home. pain increases with movement of her arm or with taking a deep breath. She currently rates her pain 7/10 and has been taking Tylenol and 1 muscle relaxant that she had home with mild relief. Patient has lupus. She is unable to take NSAIDs. Related Data Home Medications Medication Instructions Recorded Confirmed duloxetine 60 mg capsule,delayed 60 mg PO DAILY 05/20/20 01/07/21 release alprazolam 0.5 mg tablet 0.5 mg PO DAILY PRN Anxiety 12/16/20 01/07/21 lamotrigine 200 mg tablet 200 mg PO DAILY 12/16/20 01/07/21 medroxyprogesterone 150 mg/mL 150 mg IM [id number] 12/16/20 01/07/21 intramuscular syringe albuterol sulfate 90 mcg/actuation 90 mcg inhalation PRN PRN Wheezing 01/07/21 01/07/21 aerosol inhaler clonazepam 0.5 mg tablet 0.5 mg PO DAILY 01/07/21 01/07/21 Allergies Allergy/AdvReac Type Severity Reaction Status Date / Time Sulfa (Sulfonamide Allergy Mild hives, Verified 01/07/21 19:34 Antibiotics) itching NSAIDS (Non-Steroidal AdvReac Intermediate Gastrointestinal Verified 01/07/21 19:34 Anti-Inflamma Upset adhesive AdvReac Mild Rash Verified 01/07/21 19:34 Review of Systems Review of Systems: CONSTITUTIONAL: Denies body aches, fever, chills, or sweats. EYES: Denies visual changes, redness, or discharge. ENT: Denies rhinorrhea, congestion, sore throat, or otalgia. CARDIOVASCULAR: Denies chest pain, palpitations, or edema. RESPIRATORY: Denies cough or dyspnea. GASTROINTESTINAL: Denies abdominal pain, nausea, vomiting, or diarrhea. GENITOURINARY: Denies dysuria or hematuria. SKIN: Denies rash, itching, or wounds. MUSCULOSKELETAL: + Right chest wall pain NEUROLOGIC: Denies headache, numbness, tingling, or weakness. PSYCH: Denies depression or anxiety. [facility] Past Medical History Medical History Arthritis Bowel obstruction Endometriosis Interstitial cystitis Lupus Surgical History Surgical History History of cholecystectomy History of hysterectomy History of tonsillectomy Social History Social History Smoking status: Former smoker Gender identity (if verbalized by the patient): Female Comments At time of signature, I have reviewed and agree with nursing past medical, surgical, social and family history unless otherwise noted. Please see nursing chart for further information. There is no relevant family history pertinent to the presenting complaint Exam Narrative: GENERAL: Well-appearing, well-nourished, and in mild pain distress. HEAD: Normocephalic, atraumatic. EYES: EOMI. No redness or drainage. Conjunctivae normal. ENT: Mucous membranes pink and moist. NECK: Normal AROM. CHEST: No respiratory distress. Clear to auscultation. Patient has tenderness to the right lateral chest wall. No crepitus, edema, or deformity noted. Pain increases with movement of the arm or deep breath. HEART: Regular rate and rhythm. No murmur appreciated. Normal peripheral pulses. MUSCULOSKELETAL: No bony tenderness. EXTREMITIES: Normal range of motion. No edema. SKIN: Warm, dry, no rash. Capillary refill normal. Normal skin turgor. NEURO: No focal deficits. Alert and oriented x3. Gait steady. PSYCH: Normal affect. No signs of depression or anxiety. Course Course Level of Care: Express Care Visit Vital Signs Vital signs: Vital Signs Temperature 98.4 F 02/24/22 10:13 Pulse Rate 81 02/24/22 10:13 Respiratory Rate 18 1
== END 2022-02-24 10:33 | disposition home or self-care (01) ==
PROVIDERS: Emergency Provider Nurse Practitioner; PCP Physician Assistant
DX: S29.011A Strain of muscle and tendon of front wall of thorax, initial encounter (principal); M32.9 Systemic lupus erythematosus, unspecified; Z87.891 Personal history of nicotine dependence; X50.0XXA Overexertion from strenuous movement or load, initial encounter
CPT/HCPCS: 99213; G0463

== ENCOUNTER → 2022-03-30 10:48 | Outpatient (CLI) | payer MEDICARE, MEDICAID, SELFPAY ==
--- NOTE | ~2022-03-30 | XR_ITS ---
Left foot Technique: AP, oblique, and lateral views were obtained. Clinical History: Pain Findings: No acute fracture or dislocation is seen. Osseous alignment is anatomic. Joint spaces are p reserved without erosive or degenerative change. Soft tissues are unremarkable. Impression: Unremarkable left foot radiographs. Reviewed, dictated and finalized at location . TRY VACCINATOR Impression: Unremarkable left foot radiographs.
== END ==
PROVIDERS: PCP Physician Assistant; Visit Provider Physician Assistant
DX: M79.672 Pain in left foot (principal)
CPT/HCPCS: 73630

== ENCOUNTER 2022-06-27 08:49 | Emergency (ER) | payer MEDICARE, MEDICAID, SELFPAY ==
[2022-06-27 08:49] VITALS: BP 114/58; PULSE 65; RESP 18; TEMP 36.6; O2SAT 100
--- NOTE | 2022-06-27 09:27 | ED.UPPEXIN ---
HPI - Extremity Injury (Upper) General Chief Complaint: Extremity Injury, Upper Stated Complaint: Finger Rt Hand Caught in Bottle Time Seen by Provider: 06/27/22 08:55 Source: patient and RN notes reviewed Mode of arrival: ambulatory Limitations: no limitations History of Present Illness HPI narrative: 42-year-old female presents with concern for her finger stuck in the lid of a plastic wipes container. The prongs of the lid are stuck in her finger when when she tries to pull it out they become more stuck. She reports this just happened prior to arrival. Reports pain in her finger or the prongs are poking her MD complaint: injury to: right and finger Related Data Home Medications Medication Instructions Recorded Confirmed duloxetine 60 mg capsule,delayed 60 mg PO DAILY 05/20/20 01/07/21 release alprazolam 0.5 mg tablet 0.5 mg PO DAILY PRN Anxiety 12/16/20 01/07/21 lamotrigine 200 mg tablet 200 mg PO DAILY 12/16/20 01/07/21 medroxyprogesterone 150 mg/mL 150 mg IM [id number] 12/16/20 01/07/21 intramuscular syringe albuterol sulfate 90 mcg/actuation 90 mcg inhalation PRN PRN Wheezing 01/07/21 01/07/21 aerosol inhaler clonazepam 0.5 mg tablet 0.5 mg PO DAILY 01/07/21 01/07/21 Allergies Allergy/AdvReac Type Severity Reaction Status Date / Time Sulfa (Sulfonamide Allergy Mild hives, Verified 01/07/21 19:34 Antibiotics) itching NSAIDS (Non-Steroidal AdvReac Intermediate Gastrointestinal Verified 01/07/21 19:34 Anti-Inflamma Upset adhesive AdvReac Mild Rash Verified 01/07/21 19:34 Review of Systems Review of Systems: CONSTITUTIONAL: Denies malaise, chills, sweats, or fever. SKIN: Denies rash or itching, open skin, laceration, abrasion, redness, warmth, swelling. MUSCULOSKELETAL: Reports 2nd digit of the right hand stuck in a plastic container NEUROLOGIC: Denies numbness, weakness All systems reviewed & are unremarkable except as noted in HPI and below PMFSH Past Medical History Medical History Arthritis Bowel obstruction Endometriosis Interstitial cystitis Lupus Surgical History Surgical History History of cholecystectomy History of hysterectomy History of tonsillectomy Social History Social History Smoking status: Former smoker Gender identity (if verbalized by the patient): Female Comments At time of signature, agree with nursing past medical, surgical, social and family history. There is no relevant family history pertinent to the presenting complaint Exam Narrative: GENERAL: Well-appearing, well-nourished, and in no acute distress. HEAD: Normocephalic, atraumatic. EYES: PERRLA, conjunctivae clear ENT: Mucous membranes moist. NECK: Supple. No lymphadenopathy CHEST: Clear to auscultation. No respiratory distress. HEART: Regular rate and rhythm. SKIN: Warm, dry. 2nd digit of right hand lodged in the lid of a plastic container with for voided plastic prongs stuck on the patient's hand. Distal skin is pale but with normal sensation, cap refill is 3 sec NEURO: Alert and oriented x3. PSYCH: Normal mood and affect Course Course Emergency Course: Patient is aware of diagnosis, understands and agrees to treatment plan. Anticipatory guidance given. Patient agrees to follow-up as directed and is aware of reasons to seek care at the emergency department. Portions of this record may have been created with voice recognition software Level of Care: Express Care Visit Vital Signs Vital signs: Reviewed. Procedures Foreign Body Removal Foreign Body #1: Foreign Body Removal Date: 06/27/22 Foreign Body Removal Time: 09:00 Time Out Performed: yes Site: right and upper extremity Description of foreign body: other (Plastic lid) Sedation/Analgesia: other (Digital block) Raheel
== END 2022-06-27 09:33 | disposition home or self-care (01) ==
PROVIDERS: Emergency Provider Nurse Practitioner; PCP Physician Assistant
DX: S60.450A Superficial foreign body of right index finger, initial encounter (principal); X58.XXXA Exposure to other specified factors, initial encounter; M19.90 Unspecified osteoarthritis, unspecified site; N80.9 Endometriosis, unspecified
CPT/HCPCS: 99212; G0463

== ENCOUNTER 2023-01-03 07:43 | Outpatient (CLI) | payer MEDICARE, MEDICAID, SELFPAY ==
[2023-01-03 08:19] LABS: Basophils Absolute Auto 0.1 K/mm3 (0.0-0.1); Basophils Percent Auto 0.8 % (0.2-1.2); Eosinophils Absolute Auto 0.1 K/mm3 (0-0.3); Eosinophils Percent Auto 1.5 % (0-4.4); Hematocrit 42.4 % (37.0-47.0); Hemoglobin 13.6 g/dL (12.0-15.0); Immature Granulocyte Absolute 0.04 K/mm3 (0.00-0.031); Immature Granulocyte Percent A 0.7 % (0-0.5); Lymphocytes Absolute Auto 1.82 K/mm3 (0.9-3.2); Mean Corpuscular HGB Conc 32.1 g/dl (32-36); Mean Corpuscular Hemoglobin 29.2 pg (26-34); Mean Corpuscular Volume 91.2 fl (80-100); Mean Platelet Volume 9.4 fl (7.4-10.4); Monocytes Absolute Auto 0.3 K/mm3 (0.1-0.6); Monocytes Percent Auto 5.3 % (2.6-8.5); Neutrophils Absolute Auto 3.7 K/mm3 (1.3-6.7); Neutrophils Percent Auto 61.7 % (45.5-73.1); Platelet Count Result 306 k/mm3 (150-375); Red Blood Count 4.65 M/mm3 (4.2-5.4); Red Cell Distribution Width 12.4 % (11.5-14.5); White Blood Count 6.1 K/mm3 (4.5-10.0)
[2023-01-03 09:01] LABS: Alanine Aminotransferase 27 U/L (6-35); Albumin Level 4.6 g/dL (3.5-5.1); Alkaline Phosphatase 110 U/L (38-126); Anion Gap 13 mmol/L (8-16); Aspartate Amino Transferase 26 U/L (14-36); Bilirubin,Total 0.4 mg/dL (0.2-1.3); Blood Urea Nitrogen 8 mg/dL (7-17); Calcium 9.1 mg/dL (8.4-10.2); Carbon Dioxide 26 mmol/L (22-30); Chloride 100 mmol/L (98-107); Cholesterol 201 mg/dL (0-200); Estimated Glomerular Filt Rate > 60; Glucose 98 mg/dL (65-110); HDL Direct 57 mg/dL; Potassium 4.2 mmol/L (3.4-5.0); Sodium 139 mmol/L (137-145); Triglycerides 140 mg/dL (<150)
[2023-01-03 09:11] LABS: LDL Cholesterol Direct 111 mg/dL
[2023-01-03 09:23] LABS: Thyroid Stimulating Hormone 0.057 uIU/mL (0.465-4.680)
[2023-01-03 09:27] LABS: Vitamin D 25 Hydroxy 55.1 ng/mL
[2023-01-03 09:47] LABS: Vitamin B12 > 1000.0 pg/mL (239-931)
[2023-01-08 14:36] LABS: Thyroid Stimulating Immunoglob <89 % baseline (<140)
== END 2023-01-03 07:44 | disposition home or self-care (01) ==
PROVIDERS: PCP Physician Assistant; Visit Provider Physician Assistant
DX: E78.2 Mixed hyperlipidemia (principal); R73.9 Hyperglycemia, unspecified; E53.8 Deficiency of other specified B group vitamins; E55.9 Vitamin D deficiency, unspecified
CPT/HCPCS: 36415; 80053; 80061; 82306; 82607; 83036; 84443; 84445; 85025

== ENCOUNTER 2023-01-07 14:19 | Outpatient (CLI) | payer MEDICARE, MEDICAID, SELFPAY ==
--- NOTE | ~2023-01-07 | CT_ITS ---
EXAMINATION: CT orbit BI wo con DATE: 01/07/2023 14:42 INDICATION: Exophthalmus. TECHNIQUE: Computed tomography (CT) of the orbits was performed without intravenous contrast. Automat ed exposure control and iterative reconstruction technique were employed. The dose-length product was 250.21 mGy-cm. COMPARISON: Head CT 12/22/2014 FINDINGS: There is bilateral proptosis. The extraocular muscles, ocular globes, and optic nerves are normal. No abnormal mass. The paranasal sinuses are clear. The mastoid air cells are normal. IMPRESSION: 1. Bilateral proptosis, likely secondary to obesity. Reviewed, dictated and finalized at location A.
== END 2023-01-07 14:20 | disposition home or self-care (01) ==
PROVIDERS: PCP Physician Assistant
DX: H05.20 Unspecified exophthalmos (principal); E07.9 Disorder of thyroid, unspecified; H57.89 Other specified disorders of eye and adnexa
CPT/HCPCS: 70480

== ENCOUNTER 2023-01-09 11:17 | Outpatient (CLI) | payer MEDICARE, MEDICAID, SELFPAY | END 2023-01-09 11:18 | disposition home or self-care (01) | PROVIDERS: PCP Physician Assistant; Visit Provider Physician Assistant | DX: D50.9 Iron deficiency anemia, unspecified (principal) | CPT/HCPCS: 36415; 86038 ==

== ENCOUNTER 2023-01-25 12:23 | Outpatient (CLI) | payer MEDICARE, MEDICAID, SELFPAY ==
[2023-01-25 17:55] LABS: Free T4 Free Thyroxine 0.88 ng/mL (0.78-2.19)
[2023-01-28 15:16] LABS: Triiodothyronine T3 Free 3.3 pg/mL (2.3-4.2)
== END 2023-01-25 12:24 | disposition home or self-care (01) ==
LOC: ANHLAB 12:25
PROVIDERS: PCP Physician Assistant; Visit Provider Internal Medicine Endocrinology, Diabetes & Metabolism
DX: E05.90 Thyrotoxicosis, unspecified without thyrotoxic crisis or storm (principal)
CPT/HCPCS: 36415; 84439; 84481

== ENCOUNTER 2023-04-26 15:12 | Emergency (ER) | payer MEDICARE, MEDICAID, SELFPAY ==
[2023-04-26 15:24] VITALS: BP 108/68; PULSE 85; RESP 20; TEMP 36.3; O2SAT 100
--- NOTE | 2023-04-26 15:43 | ED.NECK ---
HPI - Neck Pain/Injury General Chief Complaint: Neck Pain/Injury Stated Complaint: Neck Pain and Migraines Time Seen by Provider: 04/26/23 15:44 Source: patient, RN notes reviewed and old records reviewed Mode of arrival: ambulatory Limitations: no limitations History of Present Illness HPI Narrative: 43 year old female who presents to express care with complaints of migraine headache which started yesterday with complaints of neck pain. Patient reports that headache pain at the base of her skull and migraine headache pain to area also to the frontal lower forehead area with associated nausea. 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 at [facility].Patient has no focal weakness or numbness, no nuchal rigidity noted., denies any falls or recent trauma MD complaint: other (headache, nausea, migraine, neck discomfort) Onset (ago): day(s) (day 2 of symptoms) Severity scale (1-10): 6 Quality: dull and aching Treatments prior to arrival: acetaminophen Related Data Home Medications Medication Instructions Recorded Confirmed duloxetine 60 mg capsule,delayed 60 mg PO DAILY 05/20/20 04/26/23 release lamotrigine 200 mg tablet 200 mg PO DAILY 12/16/20 04/26/23 albuterol sulfate 90 mcg/actuation 90 mcg inhalation PRN PRN Wheezing 01/07/21 04/26/23 aerosol inhaler clonazepam 0.5 mg tablet 1 mg PO DAILY 01/07/21 04/26/23 aripiprazole 5 mg tablet 5 mg PO DAILY 04/26/23 04/26/23 gabapentin 100 mg capsule 200 mg PO DAILY 04/26/23 04/26/23 montelukast 10 mg tablet 10 mg PO HS 04/26/23 04/26/23 spironolactone 100 mg tablet 100 mg PO DAILY 04/26/23 04/26/23 Allergies Allergy/AdvReac Type Severity Reaction Status Date / Time NSAIDS (Non-Steroidal AdvReac Intermediate Gastrointestinal Verified 04/26/23 15:27 Anti-Inflamma Upset adhesive AdvReac Mild Rash Verified 04/26/23 15:27 Sulfa (Sulfonamide AdvReac Mild hives, Verified 04/26/23 15:27 Antibiotics) itching Review of Systems Review of Systems: CONSTITUTIONAL: Denies fever, chills, or sweats. EYES: Denies visual changes, redness, or discharge. ENT: Denies rhinorrhea, congestion, sore throat, or otalgia. CARDIOVASCULAR: Denies chest pain, palpitations, or edema. RESPIRATORY: Denies cough or dyspnea. GASTROINTESTINAL: Denies abdominal pain,positive for nausea,no vomiting, or diarrhea. GENITOURINARY: Denies dysuria or hematuria. SKIN: Denies rash or itching. MUSCULOSKELETAL: Denies back pain reports neck pain , or myalgia. NEUROLOGIC: Reports headache, no numbness, or weakness. PSYCHIATRIC: Reports history of anxiety or depression. 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 There is no relevant family history pertinent to the presenting complaint Exam Narrative: GENERAL: Well-appearing, well-nourished, and in no acute distress. HEAD: Normocephalic, atraumatic. EYES: PERRLA and EOMI. ENT: Nares clear, no rhinorrhea or epistaxis. Mucous membranes moist. NECK: Supple.no lymphadenopathy CHEST: Clear to auscultation. No resp
== END 2023-04-26 16:23 | disposition home or self-care (01) ==
PROVIDERS: Emergency Provider Registered Nurse; PCP Physician Assistant
DX: G43.909 Migraine, unspecified, not intractable, without status migrainosus (principal); R11.0 Nausea; Z87.891 Personal history of nicotine dependence; M19.90 Unspecified osteoarthritis, unspecified site; N80.9 Endometriosis, unspecified; F31.9 Bipolar disorder, unspecified; M32.9 Systemic lupus erythematosus, unspecified
CPT/HCPCS: 99213; G0463

== ENCOUNTER 2023-04-30 09:20 | Emergency (ER) | payer MEDICARE, MEDICAID, SELFPAY ==
[2023-04-30 09:25] VITALS: BP 107/57; PULSE 87; RESP 12; TEMP 36.4; O2SAT 100
--- NOTE | 2023-04-30 10:15 | ED.GENADULT ---
HPI - General Adult General Chief complaint: Extremity Injury, Lower Stated complaint: ingrown toenail Time Seen by Provider: 04/30/23 09:25 History of Present Illness HPI narrative: 43-year-old female presenting to the emergency department for evaluation of an ingrown toenail on her right great toenail. Related Data Home Medications Medication Instructions Recorded Confirmed duloxetine 60 mg capsule,delayed 60 mg PO DAILY 05/20/20 04/26/23 release lamotrigine 200 mg tablet 200 mg PO DAILY 12/16/20 04/26/23 albuterol sulfate 90 mcg/actuation 90 mcg inhalation PRN PRN Wheezing 01/07/21 04/26/23 aerosol inhaler clonazepam 0.5 mg tablet 1 mg PO DAILY 01/07/21 04/26/23 aripiprazole 5 mg tablet 5 mg PO DAILY 04/26/23 04/26/23 gabapentin 100 mg capsule 200 mg PO DAILY 04/26/23 04/26/23 montelukast 10 mg tablet 10 mg PO HS 04/26/23 04/26/23 spironolactone 100 mg tablet 100 mg PO DAILY 04/26/23 04/26/23 Allergies Allergy/AdvReac Type Severity Reaction Status Date / Time NSAIDS (Non-Steroidal AdvReac Intermediate Gastrointestinal Verified 04/26/23 15:27 Anti-Inflamma Upset adhesive AdvReac Mild Rash Verified 04/26/23 15:27 Sulfa (Sulfonamide AdvReac Mild hives, Verified 04/26/23 15:27 Antibiotics) itching Review of Systems Review of Systems: All systems reviewed & are unremarkable except as noted in HPI and below PMFSH Past Medical History Medical History (Updated 04/30/23 @ 10:17 by Cresencio Fierro MD) Arthritis Bipolar disease, chronic Bowel obstruction Endometriosis Hx of migraines Interstitial cystitis Lupus 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 HEAD: normocephalic, atraumatic. EYES: PERRLA/EOMI, conjunctivae clear. NOSE: Normal no drainage RESPIRATORY: Airway patent, respirations nonlabored. Clear to auscultation bilaterally, no rales, rhonchi, wheezing. CARDIOVASCULAR: Regular rate and rhythm without murmurs rubs or gallops. ABDOMINAL: Soft, nontender, nondistended, normal bowel sounds MUSCULOSKELETAL: Moves all extremities. Strength/ROM intact, No edema, No calf tenderness. NEURO: Alert. Cranial nerves II through XII intact. Good gait. Good coordination SKIN: Mild erythema of the skin on the right great toe Course Course Emergency Course: 43-year-old female presenting emergency department for evaluation of an ingrown toenail. Patient was updated on wound care and on the importance of close follow-up with Podiatry. Patient was started on a short course of antibiotics. All questions and concerns were addressed patient was well-appearing at time of discharge. Vital Signs Vital signs: Vital Signs Temperature 97.6 F 04/30/23 09:25 Pulse Rate 87 04/30/23 09:25 Respiratory Rate 12 04/30/23 09:25 Blood Pressure 107/57 L 04/30/23 09:25 Pulse Oximetry 100 04/30/23 09:25 Oxygen Delivery Room Air 04/30/23 09:25 Temperature 97.9 F 04/30/23 10:42 Pulse Rate 70 04/30/23 10:42 Respiratory Rate 18 04/30/23 10:42 Blood Pressure 110/60 04/30/23 10:42 Pulse Oximetry 100 04/30/23 10:42 Oxygen Delivery Room Air 04/30/23 09:25 Medical Decision Making Vital Signs Vital Signs: Vital Signs Temperature 97.6 F 04/30/23 09:25 Pulse Rate 87 04/30/23 09:25 Respiratory Rate 12 04/30/23 09:25 Blood Pressure 107/57 L 04/30/23 09:25 Pulse Oximetry 100 04/30/23 09:25 Oxygen Delivery Room Air 04/30/23 09:25 Temperature 97.9 F 04/30/23 10:42 Pulse Rate 70 01
[2023-04-30 10:42] VITALS: BP 110/60; PULSE 70; RESP 18; TEMP 36.6; O2SAT 100
== END 2023-04-30 10:48 | disposition home or self-care (01) ==
PROVIDERS: Emergency Provider Emergency Medicine; PCP Physician Assistant
DX: L60.0 Ingrowing nail (principal); M19.90 Unspecified osteoarthritis, unspecified site; F32.9 Major depressive disorder, single episode, unspecified
CPT/HCPCS: 99283

== ENCOUNTER 2023-07-20 09:00 | Emergency (ER) | payer MEDICARE, MEDICAID, SELFPAY ==
--- NOTE | ~2023-07-20 | XR_ITS ---
XR knee LT min 4V 07/20/2023 09:49 INDICATION: Left knee pain PROCEDURE: 4 views left knee COMPARISON: No prior studies for comparison. FINDINGS: Fracture, dislocation or subluxation is not identified. The soft tissues appear within norm al limits. No foreign bodies are identified. IMPRESSION: 1: NO ACUTE BONE OR JOINT ABNORMALITY IDENTIFIED. Reviewed, dictated and finalized at location A.
[2023-07-20 09:10] VITALS: BP 118/44; PULSE 82; RESP 16; TEMP 36; O2SAT 100
--- NOTE | 2023-07-20 09:10 | ED.LOWEXIN ---
HPI - Extremity Injury (Lower) General Chief Complaint: Extremity Injury, Lower Stated Complaint: Lt Knee Pain Time Seen by Provider: 07/20/23 09:23 Source: patient, RN notes reviewed and old records reviewed Mode of arrival: ambulatory Limitations: no limitations History of Present Illness HPI Narrative: 43 year old female who presents to [facility] care with complaints of running on treadmill yesterday and her left knee popped and she has had pain to the left knee since with swelling. Patient denies any blunt trauma to her knee or fall.Patient reports she had the same knee dislocate when she was in high school and had to have it popped back into place. Patient reports that she has throbbing pain to area below knee cap region, she has elevated applied ice and taken Tylenol for her pain. Patient is able to ambulate with limping gait. MD complaint: knee injury Onset (ago): day(s) (day 2 of symptoms) Injury: Left: knee Type of Injury: unknown (felt pop) Place: home Severity scale (1-10): 7 Exacerbating factors: weight bearing Treatments prior to arrival: cold therapy and other (elevate and Tylenol) Related Data Home Medications Medication Instructions Recorded Confirmed duloxetine 60 mg capsule,delayed 60 mg PO DAILY 05/20/20 07/20/23 release lamotrigine 200 mg tablet 200 mg PO DAILY 12/16/20 07/20/23 albuterol sulfate 90 mcg/actuation 90 mcg inhalation PRN PRN Wheezing 01/07/21 07/20/23 aerosol inhaler clonazepam 0.5 mg tablet 1 mg PO DAILY 01/07/21 07/20/23 aripiprazole 5 mg tablet 5 mg PO DAILY 04/26/23 07/20/23 gabapentin 100 mg capsule 200 mg PO DAILY 04/26/23 07/20/23 montelukast 10 mg tablet 10 mg PO HS 04/26/23 07/20/23 spironolactone 100 mg tablet 100 mg PO DAILY 04/26/23 07/20/23 Allergies Allergy/AdvReac Type Severity Reaction Status Date / Time NSAIDS (Non-Steroidal AdvReac Intermediate Gastrointestinal Verified 07/20/23 09:13 Anti-Inflamma Upset adhesive AdvReac Mild Rash Verified 07/20/23 09:13 Sulfa (Sulfonamide AdvReac Mild hives, Verified 07/20/23 09:13 Antibiotics) itching Review of Systems Review of Systems: CONSTITUTIONAL: Denies fever, chills, or sweats. EYES: Denies visual changes, redness, or discharge. ENT: Denies rhinorrhea, congestion, sore throat, or otalgia. CARDIOVASCULAR: Denies chest pain, palpitations, or edema. RESPIRATORY: Denies cough or dyspnea. GASTROINTESTINAL: Denies abdominal pain, nausea, vomiting, or diarrhea. GENITOURINARY: Denies dysuria or hematuria. SKIN: Denies rash or itching. MUSCULOSKELETAL: Denies back pain, positive for pain to left knee, or myalgia. NEUROLOGIC: Denies headache, numbness, or weakness. PSYCHIATRIC: positive for history of anxiety or depression. All systems reviewed & are unremarkable except as noted in HPI and below PMFSH Past Medical History Medical History (Updated 07/21/23 @ 11:00 by Lynne Lay NP) Arthritis Asthma Bipolar disease, chronic Bowel obstruction Endometriosis Hx of migraines Interstitial cystitis Lupus Thyroid eye disease reports surgery 1 month ago Surgical History Surgical History H/O laparoscopy for endometriosis History of cholecystectomy History of hysterectomy History of tonsillectomy Social History Social History Smoking status: Former smoker Gender identity (if verbalized by the patient): Female Comments At time of signature, agree with nursing past medical, surgical, social and family history. There is no relevant family history pertinent to the presenting complaint Exam Narrative: GENERAL: Well-appearing, well-nourished, and in no acute distress. HEAD: Normocephalic, atraumatic. EYES: PERRLA and EOMI. ENT: Nares clear, no rhinorrhea or epistaxis. Mucous membranes moist. NECK: Supple. no lymphadenopathy CHEST: Clear to auscultation. No respiratory distress. SAO2 100% on room air HEART: Regular rate and rhythm. No murmur heard. Normal peripheral pulses. ABDOMEN: Soft, nontender, nondistended, normal active bowel sounds. EXTREMITIES: Normal range of motion. No edema.Exception noted to left knee with reported pain to area below patella, is able to bend knee with no increase pain, states pain increases with ambulation, minimal swelling noted denies any pain to medial or lateral aspects of left knee. Patient has strong pedal pulse left foot, denies any tingling or numbness. SKIN: Warm, dry, no rash. NEURO: No focal deficits. Alert and oriented x3. Course Course Emergency Course: Patient is aware of diagnosis, understands and agrees to treatment plan.? Anticipatory guidance given.? Patient agrees to follow-up as directed and is aware of reasons to seek care at the emergency department. Portions of this record may have been created with voice recognition software Level of Care: Express Care Visit Vital Signs Vital signs: Vital Signs Temperature 36.0 C L 07/20/23 09:10 Pulse Rate 82 07/20/23 09:10 Respiratory Rate 16 07/20/23 09:10 Blood Pressure 118/44 L 07/20/23 09:10 Pulse Oximetry 100 07/20/23 09:10 Oxygen Delivery Room Air 07/20/23 09:10 Temperature 36.0 C L 07/20/23 09:10 Pulse Rate 82 07/20/23 09:10 Respiratory Rate 16 07/20/23 09:10 Blood Pressure 118/44 L 07/20/23 09:10 Pulse Oximetry 100 07/20/23 09:10 Oxygen Delivery Room Air 07/20/23 09:10 Reviewed MDM - Extremity Injury (Lower) Differential Diagnosis Differential diagnosis: Likely acute internal derangement of knee and other (left knee pain, dislocation left knee, pain to left knee, strain left knee) Medical Records Attestation: I reviewed the patient's medical records. Imaging Data Attestation: I personally reviewed and interpreted this imaging study as follows: My impression: no fracture, dislocation or subluxation noted to left knee soft tissues appear normal no joint effusion Radiologist's impression: [facility] [address] [place] [id number] XRay Report Signed Patient: Lori Patton : 1980 MR#: [id number] Age: 43 Acct:[id number] Loc: [facility]? ? ADM Date: 07/20/23Attending Dr: Ordering Physician: Lynne Lay APRN Date of Service: 07/20/23 Procedure(s): XR knee LT min 4V Accession Number(s): [id number] cc: Lynne Lay APRN; Jeb, Kristi XIONG~ XR knee LT min 4V 07/20/2023 09:49 INDICATION: Left knee pain PROCEDURE: 4 views left knee COMPARISON: No prior studies for comparison. FINDINGS: Fracture, dislocation or subluxation is not identified. The soft tissues appear within normal limits.? No foreign bodies are identified. IMPRESSION: 1: NO ACUTE BONE OR JOINT ABNORMALITY IDENTIFIED. Reviewed, dictated and finalized at location A. Dictated By:? Monico Peña MD? 07/20/23 0951 Critical Care Time Critical Care Time Critical Care Time: No Discharge Plan Discharge Clinical Impression: Strain of left knee Qualifiers: Encounter type: initial encounter Qualified Code(s): S86.912A - Strain of unspecified muscle(s) and tendon(s) at lower leg level, left leg, initial encounter Patient Disposition: Home, Self-Care Condition: Stable Instructions: Antibiotic Form, Knee Pain (ED) Additional Instructions: Elastic wrap or orthopedic splint as directed for comfort for the next 5-7 days Tylenol for lesser pain Ibuprofen regularly for the next 2-3 days for the inflammation Follow-up with orthopedic surgeon if continued problems Follow-up with PCP if further problems or concerns Ice to the area 20-30 minutes 4-6 times a day Elevate above heart If your symptoms persist, change or worsen significantly before you can contact your personal physician then please, without delay, go to the emergency department for further evaluation. Follow-up with PCP in 7-10 days or sooner if needed Prescriptions: New prednisone 20 mg tablet 20 mg PO BID Qty: 10 0RF No Action duloxetine 60 mg capsule,delayed release(DR/EC) 60 mg PO DAILY lamotrigine 200 mg tablet 200 mg PO DAILY clonazepam 0.5 mg tablet 1 mg PO DAILY albuterol sulfate 90 mcg/actuation HFA aerosol inhaler 90 mcg INHALATION PRN PRN (Reason: Wheezing) aripiprazole 5 mg tablet 5 mg PO DAILY spironolactone 100 mg tablet 100 mg PO DAILY montelukast 10 mg tablet 10 mg PO HS gabapentin 100 mg capsule 200 mg PO DAILY rizatriptan 10 mg tablet See Rx Instructions .ROUTE .COMPLEX Qty: 9 0RF Rx Instructions: take 1 tab at onset of headache; if no relief may repeat 1 tab after at least 2 hrs; max = 3 tabs/24 hr dexamethasone 4 mg tablet 4 mg PO DAILY Qty: 1 0RF Rx Instructions: one time dose Follow-up/Referrals: Jeb,RAUL Berry [Primary Care Provider] - Time of Disposition: 10:10 Quality Janusz Coma Scale Eyes: Open Verbal: Oriented and Alert Motor: Follows Commands Janusz Coma Total Score: 15
== END 2023-07-20 10:10 | disposition home or self-care (01) ==
PROVIDERS: Emergency Provider Registered Nurse; PCP Physician Assistant
DX: S86.912A Strain of unspecified muscle(s) and tendon(s) at lower leg level, left leg, initial encounter (principal); X58.XXXA Exposure to other specified factors, initial encounter; Y93.A1 Activity, exercise machines primarily for cardiorespiratory conditioning; M19.90 Unspecified osteoarthritis, unspecified site; J45.909 Unspecified asthma, uncomplicated; N80.9 Endometriosis, unspecified; F31.9 Bipolar disorder, unspecified
CPT/HCPCS: 73564; 99213; G0463

== ENCOUNTER 2023-07-22 09:00 | Emergency (ER) | payer MEDICARE, MEDICAID, SELFPAY ==
--- NOTE | ~2023-07-22 | XR_ITS ---
EXAMINATION: XR knee LT min 4V DATE: 07/22/2023 10:08 INDICATION: Anterior left knee pain. TECHNIQUE: 4 views of left knee were obtained. COMPARISON: Left knee radiographs 07/20/23 FINDINGS: Bone alignment is normal. No fracture. There is mild osteoarthritis of patellofemoral scarlett rtment. There is a small knee joint effusion. IMPRESSION: 1. Mild left knee osteoarthritis. 2. Small left knee joint effusion. Reviewed, dictated and finalized at location E.
[2023-07-22 09:07] VITALS: BP 114/71; PULSE 80; RESP 18; TEMP 36.7; O2SAT 99
--- NOTE | 2023-07-22 10:15 | ED.GENADULT ---
HPI - General Adult General Chief complaint: Extremity Injury, Lower Stated complaint: Pt reports L knee pain radiating to ankle Time Seen by Provider: 07/22/23 09:07 History of Present Illness HPI narrative: Lori Patton is a 43 y/o female who presents with reprots of having left knee pain. She explains that she was running on the treadmill yesterday training for a 5k when she felt a pop and instant pain in her left knee. She reports increased pain with ambulation and movement. Related Data Home Medications Medication Instructions Recorded Confirmed duloxetine 60 mg capsule,delayed 60 mg PO DAILY 05/20/20 07/20/23 release lamotrigine 200 mg tablet 200 mg PO DAILY 12/16/20 07/20/23 albuterol sulfate 90 mcg/actuation 90 mcg inhalation PRN PRN Wheezing 01/07/21 07/20/23 aerosol inhaler clonazepam 0.5 mg tablet 1 mg PO DAILY 01/07/21 07/20/23 aripiprazole 5 mg tablet 5 mg PO DAILY 04/26/23 07/20/23 gabapentin 100 mg capsule 200 mg PO DAILY 04/26/23 07/20/23 montelukast 10 mg tablet 10 mg PO HS 04/26/23 07/20/23 spironolactone 100 mg tablet 100 mg PO DAILY 04/26/23 07/20/23 Allergies Allergy/AdvReac Type Severity Reaction Status Date / Time NSAIDS (Non-Steroidal AdvReac Intermediate Gastrointestinal Verified 07/22/23 09:10 Anti-Inflamma Upset adhesive AdvReac Mild Rash Verified 07/22/23 09:10 Sulfa (Sulfonamide AdvReac Mild hives, Verified 07/22/23 09:10 Antibiotics) itching Review of Systems Review of Systems: All systems reviewed & are unremarkable except as noted in HPI and below PMFSH Past Medical History Medical History Arthritis Asthma Bipolar disease, chronic Bowel obstruction Endometriosis Hx of migraines Interstitial cystitis Lupus Thyroid eye disease reports surgery 1 month ago Surgical History Surgical History H/O laparoscopy for endometriosis History of cholecystectomy History of hysterectomy History of tonsillectomy Social History Social History Smoking status: Former smoker Gender identity (if verbalized by the patient): Female Exam Narrative: GENERAL: Well-appearing, well-nourished, and in no acute distress. HEAD: Normocephalic, atraumatic. EYES: PERRLA and EOMI. ENT: Nares clear, no rhinorrhea or epistaxis. Mucous membranes moist. Oropharynx without tonsillar hypertrophy exudate or other lesions. NECK: Supple. No adenopathy or masses. No carotid bruits or JVD CHEST: Clear to auscultation. No respiratory distress. No wheezes rales or rhonchi HEART: Regular rate and rhythm. No murmur heard. Normal peripheral pulses. ABDOMEN: Soft, nontender, nondistended, normal active bowel sounds. EXTREMITIES: Splinted movement of the left knee, I didn't appreciate joint laxity on exam/ possible upper knee joint effusion/ neurovascular intact SKIN: Warm, dry, no rash. NEURO: No focal deficits. Alert and oriented x3. PSYCH: Normal mood and affect. Course Vital Signs Vital signs: Vital Signs Temperature 36.7 C 07/22/23 09:07 Pulse Rate 80 07/22/23 09:07 Respiratory Rate 18 07/22/23 09:07 Blood Pressure 114/71 07/22/23 09:07 Pulse Oximetry 99 07/22/23 09:07 Oxygen Delivery Room Air 07/22/23 09:07 Temperature 36.7 C 07/22/23 09:07 Pulse Rate 80 07/22/23 09:07 Respiratory Rate 18 07/22/23 09:07 Blood Pressure 114/71 07/22/23 09:07 Pulse Oximetry 99 07/22/23 09:07 Oxygen Delivery Room Air 07/22/23 09:07 Medical Decision Making [facility] Narrative Medical decision making narrative: 43 y/o with left knee pain after running on treadmill Splinted movement of the left knee, I didn't appreciate joint laxity on exam/ possible upper knee joint effusion/ neurovascular intact plan to check xr of her left knee and treat her pain Concern for ligament/ tendon injury / sprain/
[2023-07-22] MEDS: CYCLOBENZAPRINE HCL 10 MG TABLET PO (10:24)
[2023-07-22] MEDS: HYDROcodone/acetaminophen (*CRX) 5-325 MG TABLET 1 TAB PO (10:24)
== END 2023-07-22 11:45 | disposition home or self-care (01) ==
PROVIDERS: Emergency Provider Nurse Practitioner Family; PCP Physician Assistant
DX: M25.462 Effusion, left knee (principal); M25.562 Pain in left knee; M19.90 Unspecified osteoarthritis, unspecified site; J45.909 Unspecified asthma, uncomplicated
CPT/HCPCS: 73564; 99283; A9270

== ENCOUNTER 2023-08-01 14:17 | Outpatient (CLI) | payer MEDICARE, MEDICAID, SELFPAY ==
--- NOTE | ~2023-08-01 | MR_ITS ---
EXAMINATION: MR knee LT wo con DATE: 08/01/2023 14:59 INDICATION: Left knee pain post injury TECHNIQUE: Magnetic resonance imaging (MRI) of the left knee was performed without intravenous contra st. Sequences included coronal PD-weighted FSE, coronal PD-weighted FS FSE, sagittal T2-weighted FSE , sagittal PD-weighted FS FSE and axial PD weighted fat saturated FSE. COMPARISON: 07/22/2023 FINDINGS: Medial compartment: Medial meniscus is normal. Small partial-thickness chondral fissure at the posterior weightbearing me dial femoral condyle. Small shallow chondral ulceration along the anterior weightbearing medial femor al condyle. Cartilage along the medial tibial plateau. Lateral compartment: Lateral meniscus is normal. Articular cartilage is normal. Patellofemoral compartment: Patellar articular cartilage is normal. Small focus of subarticular edema-like signal change underlyi ng a small region of partial-thickness chondral fissuring at the inferolateral aspect of the medial t rochlea. Ligaments and tendons: Anterior and posterior cruciate ligaments are normal. The medial collateral ligament and fibular chavez ateral ligament complex are normal. The extensor mechanism is normal. The visualized medial and later al hamstring tendons as well as the iliotibial band are normal. Fluid: Physiologic amount of fluid in the joint space. No loose osteochondral bodies identified. Osseous/other: Focal marrow edema at the medial side of the proximal metaphyseal region of the left tibia surroundin g a horizontal low signal intensity nondisplaced fracture line. There is no evident obstruction or bu ckling of the overlying muscle signal intensity cortex. Otherwise normal marrow signal with no pathol ogic marrow replacing process. IMPRESSION: 1. Nondisplaced transverse fracture at the medial proximal metaphyseal region of the left tibia. 2. Mild osteoarthritis with small regions of moderate grade chondromalacia in the medial and patellof emoral compartments. Reviewed, dictated and finalized at location A. IMPRESSION: 1. Nondisplaced transverse fracture at the medial proximal metaphyseal region o f the left tibia. 2. Mild osteoarthritis with small regions of moderate grade chondromalacia in t he medial and patellofemoral compartments.
== END 2023-08-01 14:18 | disposition home or self-care (01) ==
PROVIDERS: PCP Physician Assistant; Visit Provider Orthopaedic Surgery
DX: S82.225A Nondisplaced transverse fracture of shaft of left tibia, initial encounter for closed fracture (principal); M17.12 Unilateral primary osteoarthritis, left knee; M94.262 Chondromalacia, left knee; X58.XXXA Exposure to other specified factors, initial encounter
CPT/HCPCS: 73721

== ENCOUNTER 2024-03-04 11:37 | Outpatient (CLI) | payer MEDICARE, MEDICAID, SELFPAY ==
[2024-03-04 13:32] LABS: Basophils Absolute Auto 0.1 K/mm3 (0.0-0.1); Basophils Percent Auto 0.6 % (0.2-1.2); Eosinophils Percent Auto 0.2 % (0-4.4); Hematocrit 47.1 % (37.0-47.0); Hemoglobin 15.3 g/dL (12.0-15.0); Immature Granulocyte Absolute 0.05 K/mm3 (0.00-0.031); Immature Granulocyte Percent A 0.6 % (0-0.5); Lymphocytes Absolute Auto 1.96 K/mm3 (0.9-3.2); Mean Corpuscular HGB Conc 32.5 g/dl (32-36); Mean Corpuscular Hemoglobin 28.8 pg (26-34); Mean Corpuscular Volume 88.7 fl (80-100); Mean Platelet Volume 10.1 fl (7.4-10.4); Monocytes Absolute Auto 0.4 K/mm3 (0.1-0.6); Monocytes Percent Auto 5.4 % (2.6-8.5); Neutrophils Absolute Auto 5.7 K/mm3 (1.3-6.7); Neutrophils Percent Auto 69.2 % (45.5-73.1); Platelet Count Result 394 k/mm3 (150-375); Red Blood Count 5.31 M/mm3 (4.2-5.4); Red Cell Distribution Width 12.7 % (11.5-14.5); White Blood Count 8.2 K/mm3 (4.5-10.0)
[2024-03-04 13:51] LABS: Alanine Aminotransferase 43 U/L (6-35); Albumin Level 5.3 g/dL (3.5-5.1); Alkaline Phosphatase 170 U/L (38-126); Anion Gap 10 mmol/L (4-12); Aspartate Amino Transferase 38 U/L (14-36); Bilirubin,Total 0.7 mg/dL (0.2-1.3); Blood Urea Nitrogen 10 mg/dL (7-17); Calcium 10.4 mg/dL (8.4-10.2); Carbon Dioxide 31 mmol/L (22-30); Chloride 98 mmol/L (98-107); Cholesterol 197 mg/dL (0-200); Estimated Glomerular Filt Rate > 60; Glucose 102 mg/dL (65-110); HDL Direct 64 mg/dL; Potassium 4.4 mmol/L (3.4-5.0); Sodium 139 mmol/L (137-145); Triglycerides 142 mg/dL (<150)
[2024-03-04 14:02] LABS: LDL Cholesterol Direct 95 mg/dL
[2024-03-04 14:35] LABS: Thyroid Stimulating Hormone 0.766 uIU/mL (0.465-4.680)
[2024-03-05 01:22] LABS: Hemoglobin A1C 5.4 % (<5.7)
== END 2024-03-04 11:38 | disposition home or self-care (01) ==
LOC: ANHLAB 11:42
PROVIDERS: PCP Physician Assistant; Visit Provider Physician Assistant
DX: R53.83 Other fatigue (principal); E05.00 Thyrotoxicosis with diffuse goiter without thyrotoxic crisis or storm; R73.9 Hyperglycemia, unspecified
CPT/HCPCS: 36415; 80053; 80061; 82607; 83036; 84443; 85025

== ENCOUNTER 2024-03-06 15:58 | Outpatient (CLI) | payer MEDICARE, MEDICAID, SELFPAY ==
[2024-03-06 17:41] LABS: Vitamin B12 > 1000.0 pg/mL (239-931)
== END 2024-03-06 15:59 | disposition home or self-care (01) ==
PROVIDERS: PCP Physician Assistant; Visit Provider Physician Assistant
DX: R53.83 Other fatigue (principal); E05.00 Thyrotoxicosis with diffuse goiter without thyrotoxic crisis or storm; R73.9 Hyperglycemia, unspecified
CPT/HCPCS: 36415; 82607